=== PATIENT | male | born 1980 | race Caucasian/White ===

== ENCOUNTER 2016-04-10 06:59 | Outpatient (CLI) ==
[2016-04-10 07:27] LABS: CREATININE 1.09 mg/dL (0.60-1.10)
--- NOTE | 2016-04-10 23:24 | MRI ---
EXAM: Lumbar spine MRI with and without contrast. HISTORY: Left-sided low back pain. COMPARISON: None. TECHNIQUE: Multiplanar, multisequence MR images were acquired of the lumbar spine before and after administration of intravenous contrast. FINDINGS: Five lumbar-type vertebra are present. There is minor mid lumbar levoscoliosis and 1.5 m m retrolisthesis of L2 on L3 and 3 mm retrolisthesis of L5 on S1. The superior endplate of S1 is sm aller than the inferior endplate of L5. The lumbar vertebra are normal in height and intrinsic bone marrow signal. 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 At L1-2, there is mendy r ventral spondylosis, moderate disc space narrowing and moderate irregularity along the anterior in ferior endplate of L1 with small chronic Schmorl's nodes and mild enhancement. A tiny chronic Schmo rl's node is also present along the L2 superior endplate. At L2-3, there is ventral spondylosis wit h irregularity of the anterior endplates, greatest along the L3 anterior superior endplate with reac tive sclerosis. At L5-S1, there is osteophytosis with mild endplate irregularity that is asymmetric to the left with small left far lateral endplate osteophytes, reactive bright STIR signal edema adriane ng the left lateral endplates and bright STIR signal in the left intervertebral disc that may repres ent residual hydration or edema. These findings are suggestive of increased stress at this level. There is desiccation of the intervertebral discs at L1-2 and L2-3. Conus medullaris ends at T12 and has normal signal intensity and no abnormal contrast enhancement. The visualized liver, spleen and kidneys are unremarkable. There are no paravertebral masses. There are postoperative right L5-S1 microdiskectomy changes. Increased fat is present in the medial righ t posterior paraspinous muscles at L5-S1 and there is metallic artifact in the midline subcutaneous fat. T12-L1: The intervertebral disc is normal. L1-2: There is a minor disc bulge without central canal stenosis or foraminal stenosis. L2-3: There is minor retrolisthesis of L2 on L3 and there is a mild disc bulge that minimally narro ws the inferior neural foramina bilaterally. L3-4: There is a minor disc bulge that minimally narrows the inferior neural foramina bilaterally a nd minor bilateral facet arthropathy without foraminal stenosis. L4-5: There is a minor disc bulge that minimally narrows the inferior neural foramina bilaterally a nd mild bilateral facet and ligamentum flavum hypertrophy. This causes minor left and mild right ne ural foraminal stenosis. There is no central canal stenosis. L5-S1: There is a mild diffuse disc osteophyte complex that is asymmetric to the left which narrows the inferior neural foramina bilaterally. There are postoperative right hemilaminectomy and partia l medial facetectomy changes and there is a moderate focus of soft tissue signal along the midline m argin of the disc which enhances after administration of contrast consistent with granulation tissue . This encroaches on the right S1 nerve. There is no nonenhancing soft tissue signal along the dis c margin to suggest a residual or recurrent disc herniation. There is hazy hypointense T1, enhancin g soft tissue signal in the anterior and right epidural space compatible with granulation tissue whi ch surrounds the right S1 nerve which is swollen. There is mild diffuse enhancement along the poste rior annular margin of the intervertebral disc that extends from the left lateral recess to the righ t lateral recess. Residual left greater than right facet hypertrophy is present. There is mild to moderate right and moderate left neural foraminal stenosis with encroachment on the left L5 nerve. IMPRESSION: 1. Status post right L5-S1 microdiskectomy with enhancing soft tissue along the midline margin of t he disc and in the epidural space compatible with granulation tissue which encroaches on the right S 1 nerve which is enlarged. There is no specific evidence for a recurrent or residual disc herniatio n. 2. Mild to moderate right and moderate left L5-S1 neural foraminal stenosis with encroachment on th e left L5 nerve. 3. Moderate focal degenerative endplate changes anterior inferior endplate of L1.
== END 2016-04-10 07:00 | disposition home or self-care (01) ==
LOC: RAD 06:59
PROVIDERS: ATTEND Family Medicine
DX: M54.42 Lumbago with sciatica, left side (principal)
CPT/HCPCS: 36415; 82565